=== PATIENT | male | born 1975 | race American Indian/Alaskan Native ===

== ENCOUNTER 2017-07-11 07:25 | Emergency (ER) | payer OTHER ==
[2017-07-11] MEDS ORDERED: CATAPRES PO ONE (07:49)
--- NOTE | 2017-07-11 08:14 | Cat Scan Report ---
Cranial CT without contrast. History: Hypertension, headache. Findings: The brain parenchyma is normal. There is no evidence of hemorrhage or acute infarct. The posterior fossa is normal. The ventricles are normal in size and contour. There are no masses or extra-axial collections. The calvarium is intact. There is mucoperiosteal thickening in the ethmoid air cells bilaterally. Minimal membrane thickening is seen in the sphenoid sinus. Impression: 1. No intracranial abnormalities. 2. Chronic sinus disease.
[2017-07-11] MEDS ORDERED: BENADRYL IV ONE (08:20)
[2017-07-11] MEDS ORDERED: REGLAN IV ONE (08:20)
[2017-07-11] MEDS ORDERED: TORADOL IV ONE (08:20)
--- NOTE | 2017-07-11 08:25 | Emergency Department Report ---
ED Headache HPI - General Chief Complaint: Headache Stated Complaint: HEAD PAIN Time Seen by Provider: 07/11/17 08:14 Source: patient Exam Limitations: no limitations - History of Present Illness Initial Comments: 42-year-old male with a past history of hypertension presents to the hospital complaints of right-sided headache since 2:30 AM. Headache started while at work. Patient assumed his blood pressure was high since he has been off of his lisinopril/hydrochlorothiazide 8 months because he does not have a primary care doctor. This headache was gradual onset, rated 10/10 in intensity, right- sided, throbbing and includes to frontal, parietal, temporal, and pain behind the right orbit. Positive associated light sensitivity. No fever, blurred vision, neck pain, nausea, vomiting, or focal weakness less numbness reported. Patient states he has had similar headaches on the right side intermittently for the past 6 years but denies any migraine diagnosis or workup. Allergies/Adverse Reactions: Allergies No Known Allergies Allergy (Unverified 07/11/17 07:39) Home Medications: Ambulatory Orders Butalb/Acetamin/Caff 50-325-40 [Fioricet] 1 tab PO Q6HR PRN #20 tab 07/11/17 HYDROcodone/APAP 5-325 [[place] 5/325] 1 each PO Q6HR PRN #20 tablet 07/11/17 Ibuprofen [Motrin] 800 mg PO Q8HR PRN #30 tablet 07/11/17 amLODIPine [Norvasc] 5 mg PO DAILY #30 tab 07/11/17 ED Review of Systems ROS: Stated complaint: HEAD PAIN Other details as noted in HPI Comment: All other systems reviewed and negative Other: Constitutional: No fevers chills Eyes: No eye pain visual changes ENT: No ear pain or throat pain Neck: Denies pain Respiratory: Denies cough wheezing shortness of breath Cardiovascular: Denies chest pain, palpitations, syncope GI: Denies abdominal pain, nausea, vomiting, diarrhea : Denies dysuria Musculoskeletal: Denies back pain, joint swelling Skin: Denies rash, lesions, erythema Neurologic: Denies numbness, weakness Psychiatric: Denies suicidal ideation, hallucinations ED Past Medical Hx - Past Medical History Previous Medical History?: Yes Hx Hypertension: Yes - Surgical History Past Surgical History?: No - Social History Smoking Status: Current Every Day Smoker Substance Use Type: None - Medications Home Medications: Home Medications Medication Instructions Recorded Confirmed Last Taken Type Butalb/Acetamin/Caff 50-325-40 1 tab PO Q6HR PRN #20 tab 07/11/17 Unknown Rx [Fioricet] HYDROcodone/APAP 5-325 [[place] 1 each PO Q6HR PRN #20 tablet 07/11/17 Unknown Rx 5/325] Ibuprofen [Motrin] 800 mg PO Q8HR PRN #30 tablet 07/11/17 Unknown Rx amLODIPine [Norvasc] 5 mg PO DAILY #30 tab 07/11/17 Unknown Rx ED Physical Exam - General Limitations: No Limitations - Other Other exam information: General: No limitations, patient is alert in no acute distress Head exam: Atraumatic, normocephalic Eyes exam: Normal appearance, pupils equal reactive to light, extraocular movements intact. Mild right temporal tenderness ENT: Moist mucous membrane Neck exam: Normal inspection, full range of motion, no meningismus nontender Respiratory exam: Clear to auscultation bilateral, no wheezes, rales, crackles Cardiovascular: Normal rate and rhythm, normal heart sounds Abdomen: Soft, nondistended, and nontender, with normal bowel sounds, no rebound, or guarding Extremity: Full range of motion normal inspection no deformity Back: Normal Inspection, full range of motion, no tenderness Neurologic: Alert, oriented x3, cranial nerves intact, no motor or sensory deficit Psychiatric: normal affect, normal mood Skin: Warm, dry, intact ED Course Vital Signs 07/11/17 07/11/17 07/11/17 07:36 08:15 08:32 Pulse Rate 88 Respiratory 16 16 Rate Blood Pressure 167/114 167/114 Blood Pressure [Right] O2 Sat by Pulse 99 Oximetry 07/11/17 07/11/17 07/11/17 09:02 09:36 09:57 Pulse Rate 90 Respiratory 16 16 16 Rate Blood Pressure Blood Pressure 116/78 [Right] O2 Sat by Pulse 99 98 Oximetry 07/11/17 10:15 Pulse Rate Respiratory 16 Rate Blood Pressure Blood Pressure [Right] O2 Sat by Pulse Oximetry - Reevaluation(s) Reevaluation #1: 07/11/17 08:26 Patient treated with clonidine 0.1 mg for blood pressure, Reglan, Benadryl, and Toradol for pain 01/03/18 11:06 Pain was 7/10 intensity after initial treatment. Dilaudid 0.5 mg with this pain further and patient feels better ED Medical Decision Making - Lab Data Result diagrams: 07/11/17 08:10 07/11/17 08:10 Lab Results 07/11/17 07/11/17 07/11/17 Range/Units 08:10 08:10 08:10 WBC 5.0 (4.5-11.0) K/mm3 RBC 4.40 (3.65-5.03) M/mm3 Hgb 12.7 (11.8-15.2) gm/dl Hct 37.8 (35.5-45.6) % MCV 86 (84-94) fl MCH 29 (28-32) pg MCHC 34 (32-34) % RDW 14.4 (13.2-15.2) % Plt Count 187 (140-440) K/mm3 Lymph % (Auto) 19.7 (13.4-35.0) % [place] % (Auto) 15.6 H (0.0-7.3) % Eos % (Auto) 0.4 (0.0-4.3) % Baso % (Auto) 0.6 (0.0-1.8) % Lymph # 1.0 L (1.2-5.4) K/mm3 [place] # 0.8 (0.0-0.8) K/mm3 Eos # 0.0 (0.0-0.4) K/mm3 Baso # 0.0 (0.0-0.1) K/mm3 Seg Neutrophils % 63.7 (40.0-70.0) % Seg Neutrophils # 3.2 (1.8-7.7) K/mm3 PT 13.0 (12.2-14.9) Sec. INR 0.94 (0.87-1.13) APTT 31.6 (24.2-36.6) Sec. Sodium 139 (137-145) mmol/L Potassium 3.9 (3.6-5.0) mmol/L Chloride 100.0 (98-107) mmol/L Carbon Dioxide 24 (22-30) mmol/L Anion Gap 19 mmol/L BUN 15 (9-20) mg/dL Creatinine 0.7 L (0.8-1.5) mg/dL Estimated GFR > 60 ml/min BUN/Creatinine Ratio 21 % Glucose 107 H (75-100) mg/dL Calcium 8.9 (8.4-10.2) mg/dL - Radiology Data Radiology results: report reviewed CT head: No acute intracranial abnormalities. Chronic sinus disease. Mucoperiosteal thickening in the ethmoid air cells bilaterally and minimal membrane thickening is seen in the sphenoid sinus - Medical Decision Making CT only shows findings of chronic sinusitis ENT referral will be provided Patient has chronic untreated hypertension. Norvasc will be prescribed and follow-up encouraged Patient has a history of chronic recurrent unilateral headache suggestive of migraines. Neurology follow-up also name as prescribed. - Differential Diagnosis migraine, hypertension emergency, [facility] Critical Care Time: No Critical care attestation.: If time is entered above; I have spent that time in minutes in the direct care of this critically ill patient, excluding procedure time. ED Disposition Clinical Impression: Unilateral headache, Uncontrolled hypertension, Noncompliance with medication regimen, Chronic sinusitis Disposition: TO HOME OR SELFCARE Is pt being admited?: No Condition: Stable Instructions: Sinusitis (ED), Migraine Headache (ED), Hypertension (ED) Additional Instructions: Take the medication as prescribed. Follow with the physicians and/or clinic provided. Use the discount coupon card provided to make the medications more affordable. Return is symptoms worsen as indicated by your discharge instructions Prescriptions: amLODIPine [Norvasc] 5 mg PO DAILY #30 tab Butalb/Acetamin/Caff 50-325-40 [Fioricet] 1 tab PO Q6HR PRN #20 tab PRN Reason: Headache HYDROcodone/APAP 5-325 [[place] 5/325] 1 each PO Q6HR PRN #20 tablet PRN Reason: Pain Ibuprofen [Motrin] 800 mg PO Q8HR PRN #30 tablet PRN Reason: Pain Referrals: DAFNE PATHAK MD [Staff Physician] - 3-5 Days (ENT doctor) MAXIMILIAN LEWIS MD [Staff Physician] - 3-5 Days (Neurologist) [facility] [Provider Group] - 3-5 Days (Primary care clinic) Time of Disposition: 12:01
[2017-07-11 08:32] LABS: Basophils % (Auto) 0.6 % (0.0-1.8); Eosinophils % (Auto) 0.4 % (0.0-4.3); Hematocrit 37.8 % (35.5-45.6); Hemoglobin 12.7 gm/dl (11.8-15.2); Lymphocytes % (Auto) 19.7 % (13.4-35.0); Mean Corpuscular HGB Conc 34 % (32-34); Mean Corpuscular Hemoglobin 29 pg (28-32); Mean Corpuscular Volume 86 fl (84-94); Monocytes # (Auto) 0.8 K/mm3 (0.0-0.8); Monocytes % (Auto) 15.6 % (0.0-7.3); Platelet Count 187 K/mm3 (140-440); Red Cell Distribution Width 14.4 % (13.2-15.2)
[2017-07-11 08:37] LABS: INR 0.94 (0.87-1.13)
[2017-07-11 08:38] LABS: Partial Thromboplastin Time 31.6 Sec. (24.2-36.6)
[2017-07-11 08:39] LABS: BUN/Creatinine Ratio 21; Blood Urea Nitrogen 15 mg/dL (9-20); Calcium 8.9 mg/dL (8.4-10.2); Hemolysis Index 10
[2017-07-11] MEDS ORDERED: DILAUDID IV ONE (10:01)
[2017-07-11] MEDS ORDERED: ZOFRAN IV ONE (10:01)
[2017-07-11] MEDS ORDERED: DILAUDID ONE (10:14)
[2017-07-11] MEDS ORDERED: IMITREX SUB-Q ONE (11:19)
[2017-07-11 12:33] VITALS: BP 132/78
== END 2017-07-11 12:13 | disposition home or self-care (01) ==
LOC: ED 07:25
DX: J32.9 Chronic sinusitis, unspecified (principal); I10 Essential (primary) hypertension; F17.200 Nicotine dependence, unspecified, uncomplicated
CPT/HCPCS: 36415; 70450; 80048; 85025; 85610; 85730; 96374; 96375; 99284; J1170; J1200; J1885; J2405; J2765

== ENCOUNTER 2017-10-09 10:21 | Emergency (ER) | payer SELFPAY ==
[2017-10-09 11:03] VITALS: BP 170/121
[2017-10-09 12:56] LABS: Basophils % (Auto) 0.7 % (0.0-1.8); Eosinophils % (Auto) 0.4 % (0.0-4.3); Hematocrit 40.2 % (35.5-45.6); Lymphocytes # (Auto) 2.1 K/mm3 (1.2-5.4); Lymphocytes % (Auto) 30.3 % (13.4-35.0); Mean Corpuscular HGB Conc 32 % (32-34); Mean Corpuscular Hemoglobin 28 pg (28-32); Mean Corpuscular Volume 87 fl (84-94); Monocytes # (Auto) 0.7 K/mm3 (0.0-0.8); Monocytes % (Auto) 9.9 % (0.0-7.3); Platelet Count 239 K/mm3 (140-440); Red Blood Count 4.63 M/mm3 (3.65-5.03); Red Cell Distribution Width 14.9 % (13.2-15.2)
[2017-10-09 13:37] LABS: Alanine Aminotransferase 17 units/L (7-56); Albumin 4.7 g/dL (3.9-5); BUN/Creatinine Ratio 16; Blood Urea Nitrogen 16 mg/dL (9-20); Calcium 9.6 mg/dL (8.4-10.2); Hemolysis Index 6
[2017-10-09 13:56] LABS: Bilirubin,Urine NEG (Negative); Blood,Urine NEG (Negative); Color,Urine Yellow (Yellow); Mucus,Urine FEW /HPF; Urobilinogen,Urine < 2.0 mg/dL (<2.0)
== END 2017-10-10 10:40 | disposition left against medical advice (07) ==
LOC: ED 10:21
DX: R22.1 Localized swelling, mass and lump, neck (principal); M79.89 Other specified soft tissue disorders; M54.9 Dorsalgia, unspecified; Z53.21 Procedure and treatment not carried out due to patient leaving prior to being seen by health care provider
CPT/HCPCS: 36415; 80053; 81001; 85025

== ENCOUNTER 2018-10-19 12:36 | Emergency (ER) | payer OTHER ==
[2018-10-19 12:47] VITALS: BP 148/117
--- NOTE | 2018-10-19 12:51 | Emergency Department Report ---
Blank Doc - Documentation Documentation: 43 y o male presents to ED cc of blood in urine and semen x 3 weeks, states no relief, states lymph nodes swelling denies dysuria labs ordered US scortum
[2018-10-19 13:25] LABS: Bacteria,Urine 1+ /HPF (Negative); Bilirubin,Urine NEG (Negative); Blood,Urine MOD (Negative); Color,Urine Yellow (Yellow); Mucus,Urine 2+ /HPF; Protein,Urine <15 mg/dL mg/dL (Negative); Urobilinogen,Urine < 2.0 mg/dL (<2.0)
--- NOTE | 2018-10-19 14:47 | Ultrasound Report ---
PROCEDURE: US TESTICULAR DOPPLER COMP TECHNIQUE: Real-time lechuga-scale and color flow Doppler sonography in multiple planes of the scrotum, testicles, and epididymides was performed. Velocity spectral waveform analysis and color Doppler zoie ging of the arterial inflow and venous outflow of the testicles was performed with image documentatio n. HISTORY: blood in urine/semen COMPARISONS: None . FINDINGS: RIGHT TESTICLE: Size: 4.1 x 1.7 x 3.2 cm . Appearance: Scattered benign-appearing calcifications. Otherwise normal echogenicity . Arterial blood flow: Normal spectral waveforms, flow velocities and color flow images.. Venous blood flow: Normal spectral waveforms and color flow images. Right epididymis: 2 epididymal head cysts measuring up to 5 mm . Hydrocele: Trace fluid medial to the testicle . LEFT TESTICLE Size: 3.5 x 1.7 x 2.7 cm . Appearance: Scattered benign-appearing calcifications . Arterial blood flow: Normal spectral waveforms, flow velocities and color flow images.. Venous blood flow: Normal spectral waveforms and color flow images. Left epididymis: Normal size and echotexture . Hydrocele: None . Small, lymph nodes in the right groin measuring up to 6 mm in short axis with normal indy architectu re. IMPRESSION: Bilateral testicular calcifications. Otherwise normal sonographic appearance of the bilateral testicl es without evidence for torsion. 2 small right epididymal head cysts. Trace right hydrocele. This document is electronically signed by Che Koenig MD., October 19 2018 02:44:56 PM ET
--- NOTE | 2018-10-19 15:01 | Emergency Department Report ---
Chief Complaint: Abdominal Pain Stated Complaint: BLOOD IN URINE AND SEMEN Time Seen by Provider: 10/19/18 12:45 - HPI History of Present Illness: Mr. Arroyo became obviously angry while awaiting ultrasound results after being greeted by provider at triage. Upon first approach, he was rude, loud and combative. I informed him that he would be discharged due to his aggressive behavior. He refused to leave. I asked security officers to supervise my interaction with my Mr. Arroyo. I gave him a paper copy of his ultrasound results and recommended to follow up with a clinic or urologist. Medical screening exam performed. Limited exam due to Mr. Arroyo inappropriate behavior. - Exam Vital Signs: Vital Signs 10/19/18 12:47 Temperature 98.6 F Pulse Rate 90 Respiratory 18 Rate Blood Pressure 148/117 O2 Sat by Pulse 99 Oximetry MSE screening note: Focused history and physical exam performed. Due to findings the following was ordered: ED Disposition for MSE Clinical Impression: Hematuria, Blood in semen Disposition: MED SCREENING EXAM-LEFT Is pt being admited?: No Does the pt Need Aspirin: No Condition: Stable
== END 2018-10-19 15:04 | disposition left against medical advice (07) ==
LOC: ED 12:36
DX: R31.9 Hematuria, unspecified (principal); R36.1 Hematospermia
CPT/HCPCS: 81001; 93975; 99283

== ENCOUNTER 2019-04-04 08:05 | Emergency (ER) | payer SELFPAY ==
--- NOTE | 2019-04-04 08:22 | Emergency Department Report ---
Abscess Boil HPI - HPI Chief Complaint: Dental/Oral Stated Complaint: LFT SIDE MOUTH ACHE/PAIN Time Seen by Provider: 04/04/19 08:22 Duration: 5 Days Location: Other Severity: Mild History: Yes Pain, Yes Previous History, No Fever, No Purulent Drainage, No Numbness, No Foreign Body, No Insect Bite HPI: 43 YO MALE COMES TO ER WITH DENTAL PAIN. HE HAS DMD APPOINTMENT NEXT WEEK BUT THE PAIN IS TOO BAD. MOTRIN/TYLENOL FOR PAIN NOT WORKING. NOT ON ANTIBIOTICS. ABC INTACT. NO FEVER. Home Medications: Previous Rx's Medication Instructions Recorded Last Taken Type Amoxicillin [Trimox CAP] 500 mg PO BID #20 capsule 04/04/19 Unknown Rx Ibuprofen [Motrin] 800 mg PO Q8HR PRN #30 tablet 04/04/19 Unknown Rx Lisinopril [Zestril TAB] 10 mg PO QDAY #30 tablet 04/04/19 Unknown Rx Allergies/Adverse Reactions: Allergies Allergy/AdvReac Type Severity Reaction Status Date / Time No Known Allergies Allergy Verified 10/19/18 12:41 ED Review of Systems ROS: Stated complaint: LFT SIDE MOUTH ACHE/PAIN Other details as noted in HPI Comment: All other systems reviewed and negative ED Past Medical Hx - Past Medical History Previous Medical History?: Yes Hx Hypertension: Yes - Surgical History Past Surgical History?: No - Family History Family history: no significant - Social History Smoking Status: Never Smoker Substance Use Type: None - Medications Home Medications: Home Medications Medication Instructions Recorded Confirmed Last Taken Type Amoxicillin [Trimox CAP] 500 mg PO BID #20 capsule 04/04/19 Unknown Rx Ibuprofen [Motrin] 800 mg PO Q8HR PRN #30 tablet 04/04/19 Unknown Rx Lisinopril [Zestril TAB] 10 mg PO QDAY #30 tablet 04/04/19 Unknown Rx ED Abscess Boil Physical Exam - Exam General: Vital signs noted. No distress. Alert and acting appropriately. Exam: Yes Normal Neurologic Exam, Yes Normal Circulation, No Tenderness, No Fluctuance, No Surrounding Cellulites/Erythema, No Lymphangitis, No Crepitation, No Heart Murmur Exam: CARIES NO 32. TAKING PO. NO TRISMUS. NO ABSCESS. ED Course Vital Signs 04/04/19 08:12 Temperature 98 F Pulse Rate 93 H Respiratory 16 Rate Blood Pressure 206/137 [Left] O2 Sat by Pulse 96 Oximetry Critical care attestation.: If time is entered above; I have spent that time in minutes in the direct care of this critically ill patient, excluding procedure time. ED Medical Decision Making - Medical Decision Making ABC INTACT NO ABSCESS TAKING PO MEDICATED IN ER REQUESTING HOME BP MED REFILL BUT HE DOES NOT WANT LISINOPRIL I TOLD HIM I WOULD NOT CHANGE HIS MEDS THAT PCP HAD TO DO THIS DC HOME WITH DC PLAN OF CARE. Vital Signs 04/04/19 04/04/19 08:12 08:57 Temperature 98 F Pulse Rate 93 H 90 Respiratory 16 16 Rate Blood Pressure 206/137 200/130 [Left] O2 Sat by Pulse 96 97 Oximetry - Differential Diagnosis SIMPLE ABSCESS ED Disposition Clinical Impression: Pain, dental, HTN (hypertension), Medication refill Disposition: DC-01 TO HOME OR SELFCARE Is pt being admited?: No Does the pt Need Aspirin: No Condition: Stable Instructions: Hypertension (ED) Additional Instructions: FOLLOW UP WITH PCP LEON FOR BP FOLLOW UP WITH DENTIST SCHEDULED MEDS ORDERED TODAY Referrals: PRIMARY CAREMD [Primary Care Provider] - 3-5 Days ELVIRA WARD MD [Staff Physician] - 3-5 Days Time of Disposition: 08:47
[2019-04-04] MEDS ORDERED: AMOXICILLIN 500 MG CAP PO ONE (08:43)
[2019-04-04] MEDS ORDERED: KETOROLAC 60 MG/2 ML INJ IM ONE (08:43)
[2019-04-04 08:58] VITALS: BP 200/130
== END 2019-04-04 08:57 | disposition home or self-care (01) ==
LOC: ED 08:05
DX: K08.89 Other specified disorders of teeth and supporting structures (principal); I10 Essential (primary) hypertension; Z76.0 Encounter for issue of repeat prescription
CPT/HCPCS: 96372; 99282; J1885

== ENCOUNTER 2021-05-02 13:20 | Emergency (ER) | payer SELFPAY ==
[2021-05-02 13:28] VITALS: BP 159/108
== END 2021-05-02 15:15 | disposition left against medical advice (07) ==
LOC: ED 13:20
DX: M54.9 Dorsalgia, unspecified (principal); Z53.21 Procedure and treatment not carried out due to patient leaving prior to being seen by health care provider